=== PATIENT | male | born 1990 | race Caucasian/White ===

== ENCOUNTER 2016-05-07 10:48 | Emergency (ER) | payer BC ==
--- NOTE | 2016-05-28 08:03 | ER ---
ADMIT: 05/07/2016 RM/LOC: ER [facility] MR#: [id number] [address] [id number] SHOBHA MEJIA [address] [place] [address] Emergency Room Report SEX: M AGE: 26 : 1990 DATE: 05/07/2016 A 26-year-old, who had pilonidal cyst removed several days ago, comes to the Emergency Department with vomiting x2, crampy abdominal pain. See T-sheet for history and physical. KUB reveals a great deal of stool. Diagnosed with constipation and a healing pilonidal surgical site. Given Zofran, lactulose prescription, and Keflex. Encouraged to follow up as scheduled with Dr. Roberts. Aris Honeycutt MD/ syl JOB #: [id number] CC: Aris Honeycutt MD, Attending Physician Justino Grace MD, Family Physician
== END 2016-05-07 11:55 | disposition home or self-care (01) ==
LOC: ER 10:48
DX: K59.00 Constipation, unspecified (principal)